=== PATIENT | male | born 1995 | race Caucasian/White ===

== ENCOUNTER 2016-05-11 11:22 | Emergency (ER) | payer MEDICARE, OTHER ==
[2016-05-11 11:56] LABS: HEMOGLOBIN 15.7 gm/dl (14.0-17.5); RED BLOOD COUNT 5.08 M/UL (4.20-5.50); WHITE BLOOD COUNT 5.6 K/UL (4.5-11.0)
[2016-05-11 12:21] LABS: BUN/CREATININE RATIO 30 (0-10)
== END 2016-05-11 13:40 | disposition home or self-care (01) ==
LOC: ER1 11:22
PROVIDERS: Emergency Medicine
DX: R07.89 Other chest pain (principal); R06.02 Shortness of breath
CPT/HCPCS: 36415; 71020; 80053; 82550; 82553; 83874; 84484; 85025; 85379; 93005; 96374; 99285; J1885

== ENCOUNTER 2016-11-22 14:53 | Emergency (ER) | payer MEDICARE, OTHER ==
[2016-11-22 15:46] LABS: RED BLOOD COUNT 5.29 M/UL (4.20-5.50); WHITE BLOOD COUNT 8.2 K/UL (4.5-11.0)
[2016-11-22 16:23] LABS: BUN/CREATININE RATIO 24 (0-10)
== END 2016-11-22 20:51 | disposition home or self-care (01) ==
LOC: ER1 14:53
PROVIDERS: Family Medicine
DX: R07.89 Other chest pain (principal); R11.10 Vomiting, unspecified
CPT/HCPCS: 36415; 71020; 80053; 81001; 82550; 82553; 83690; 83735; 83874; 83880; 84100; 84484; 85025; 85379; 87086; 93005; 96374; 99285; J2405; J7040